=== PATIENT | female | born 1990 | race African-American/Black ===

== ENCOUNTER 2016-10-23 11:52 | Inpatient (IN) | payer OTHER ==
[~2016-10-23] VITALS: Ht 172.7 cm; Wt 156.5 kg
[~2016-10-23 11:52] MED LIST: Chromagen, Feogen, M PO; Motrin PO; TYLENOL WITH C1 EACH PO
[2016-10-23 12:51] LABS: HEMATOCRIT 35.4 % (36.0-46.0); MCH 22.4 PG (29.0-34.0); MCHC 31.1 G/DL (30.0-36.0); MEAN PLAT.VOLUME 10.4 uM^3 (9.5-12.4); PLATELET COUNT 460 K/uL (156-360); RBC DIS.WIDTH-CV 17.4 % (11.8-14.6); RBC DIS.WIDTH-SD 44.1 % (39-53); RED BLOOD COUNT 4.92 M/uL (3.80-5.20); WHITE BLOOD COUNT 11.3 K/uL (4.1-10.2)
[2016-10-23 13:01] LABS: CHLORIDE 102 mEq/L (99-109); POTASSIUM 3.9 mEq/L (3.7-5.4); SODIUM 135 mEq/L (136-147)
[2016-10-23 13:03] LABS: GLUCOSE 109 mg/dL (70-99)
[2016-10-23 13:04] LABS: ANION GAP 11 MEQ/L (2-14)
[2016-10-23 13:07] LABS: GFR ESTIMATE (CALCULATED) > 59 mL/min/
[2016-10-23 13:08] LABS: UREA NITROGEN (BUN) 7 mg/dL (9-23)
[2016-10-23 14:19] LABS: QUANTITATIVE HCG < 4.0 MIU/ML
[2016-10-23 14:58] LABS: INFLUENZA A VIRAL ANTIGEN NEGATIVE; INFLUENZA B VIRAL ANTIGEN NEGATIVE
[2016-10-23 15:29] LABS: D-DIMER ELISA 0.38 mg/L FEU (< 0.57)
[2016-10-23 20:35] VITALS: BP 129/82
[2016-10-23 22:52] VITALS: BP 125/60
[2016-10-24 08:39] VITALS: BP 130/60
[2016-10-24 12:27] VITALS: BP 121/64
[2016-10-24 16:20] VITALS: BP 140/82
[2016-10-24 23:12] VITALS: BP 149/90
[2016-10-25 07:35] VITALS: BP 147/69
[2016-10-25 16:35] VITALS: BP 143/69
[2016-10-25 22:58] VITALS: BP 131/80
[2016-10-26 06:48] LABS: HEMATOCRIT 32.9 % (36.0-46.0); MCH 21.9 PG (29.0-34.0); MCHC 29.8 G/DL (30.0-36.0); MCV 73.4 FL (83-99); MEAN PLAT.VOLUME 10.8 uM^3 (9.5-12.4); PLATELET COUNT 389 K/uL (156-360); RBC DIS.WIDTH-CV 17.7 % (11.8-14.6); RBC DIS.WIDTH-SD 47.4 % (39-53); RED BLOOD COUNT 4.48 M/uL (3.80-5.20)
[2016-10-26 06:52] LABS: WHITE BLOOD COUNT 5.7 K/uL (4.1-10.2)
[2016-10-26 07:07] LABS: ALKALINE PHOSPHATASE 41 IU/L (3-129); ANION GAP 10 MEQ/L (2-14); CHLORIDE 105 MEQ/L (99-109); GFR ESTIMATE (CALCULATED) > 59 mL/min/; GLUCOSE 91 mg/dL (70-99); POTASSIUM 3.4 MEQ/L (3.7-5.4); SAMPLE HEMOLYSIS CHECK 0; SAMPLE ICTERIC CHECK 0; SAMPLE LIPEMIA CHECK 0; SODIUM 137 MEQ/L (136-147); TOTAL BILIRUBIN 0.4 MG/DL (0.0-1.0); UREA NITROGEN (BUN) 8 mg/dL (9-23)
[2016-10-26 08:25] VITALS: BP 154/88
[2016-10-26 18:00] VITALS: BP 132/82
[2016-10-26 19:21] VITALS: BP 133/73
[2016-10-26 23:12] VITALS: BP 117/72
[2016-10-27 06:42] LABS: HEMATOCRIT 32.7 % (36.0-46.0); MCH 21.8 PG (29.0-34.0); MCV 72.8 FL (83-99); MEAN PLAT.VOLUME 9.9 uM^3 (9.5-12.4); PLATELET COUNT 439 K/uL (156-360); RBC DIS.WIDTH-CV 17.5 % (11.8-14.6); RBC DIS.WIDTH-SD 46.5 % (39-53); RED BLOOD COUNT 4.49 M/uL (3.80-5.20); WHITE BLOOD COUNT 6.8 K/uL (4.1-10.2)
[2016-10-27 06:56] LABS: EOSINOPHIL (%) 5.6 % (0-5); EOSINOPHIL COUNT 0.4 K/uL (0-0.3); IMMATURE GRANULOCYTE (%) 0.3 % (0.0-0.7); LYMPHOCYTE COUNT 2.8 K/uL (1.0-2.8); MONOCYTE (%) 6.2 % (3-12); MONOCYTE COUNT 0.4 K/uL (0-0.8); NEUTROPHIL (%) 46.9 % (45-76); NEUTROPHIL COUNT 3.2 K/uL (1.8-6.4)
[2016-10-27 07:15] LABS: ANION GAP 10 MEQ/L (2-14); CHLORIDE 103 MEQ/L (99-109); GFR ESTIMATE (CALCULATED) > 59 mL/min/; GLUCOSE 96 mg/dL (70-99); SAMPLE HEMOLYSIS CHECK 0; SAMPLE ICTERIC CHECK 0; SAMPLE LIPEMIA CHECK 0; SODIUM 135 MEQ/L (136-147); UREA NITROGEN (BUN) 7 mg/dL (9-23)
[2016-10-27 07:24] LABS: POTASSIUM 4.1 MEQ/L (3.7-5.4)
[2016-10-27 08:15] VITALS: BP 132/80
[2016-10-27 16:35] VITALS: BP 130/84
[2016-10-27 22:53] VITALS: BP 107/67
[2016-10-28 08:18] VITALS: BP 142/82
[2016-10-28 16:46] VITALS: BP 123/87
[2016-10-28 23:02] VITALS: BP 119/60
[2016-10-29 07:50] LABS: HEMATOCRIT 31.6 % (36.0-46.0); MCH 21.9 PG (29.0-34.0); MCHC 30.4 G/DL (30.0-36.0); MCV 72.1 FL (83-99); MEAN PLAT.VOLUME 9.7 uM^3 (9.5-12.4); PLATELET COUNT 466 K/uL (156-360); RBC DIS.WIDTH-CV 17.3 % (11.8-14.6); RED BLOOD COUNT 4.38 M/uL (3.80-5.20)
[2016-10-29 07:56] LABS: ALKALINE PHOSPHATASE 42 IU/L (3-129); ANION GAP 7 MEQ/L (2-14); CHLORIDE 105 MEQ/L (99-109); GFR ESTIMATE (CALCULATED) > 59 mL/min/; GLUCOSE 95 mg/dL (70-99); POTASSIUM 4.5 MEQ/L (3.7-5.4); SAMPLE HEMOLYSIS CHECK 0; SAMPLE ICTERIC CHECK 0; SAMPLE LIPEMIA CHECK 0; SODIUM 135 MEQ/L (136-147); TOTAL BILIRUBIN 0.3 MG/DL (0.0-1.0); UREA NITROGEN (BUN) 8 mg/dL (9-23)
[2016-10-29 08:00] VITALS: BP 132/78
[2016-10-29 08:03] LABS: WHITE BLOOD COUNT 9.6 K/uL (4.1-10.2)
[2016-10-29 16:06] VITALS: BP 175/90
[2016-10-29] MEDS ORDERED: CHERATUSSIN AC473 ML PO (20:58)
[2016-10-29] MEDS ORDERED: SYMBICORT60 INHALAT IH (20:58)
[2016-10-29] MEDS ORDERED: COMBIVENT RESPIM4 GM IH (20:58)
[2016-10-29] MEDS ORDERED: PREDNISONE10 MG PO (20:58)
[2016-10-29] MEDS ORDERED: LEVAQUIN500 MG PO (20:58)
== END 2016-10-29 22:07 | disposition home or self-care (01) | DRG 194 ==
LOC: EME 11:52 → RME 11:52 → 5EAST 16:52 → EDOF 16:52 → 5EAST 20:39
PROVIDERS: Family Medicine; Internal Medicine; Nurse Practitioner Family
DX: J18.1 Lobar pneumonia, unspecified organism (principal); Z68.43 Body mass index [BMI] 50.0-59.9, adult; J98.11 Atelectasis; R09.02 Hypoxemia; E66.01 Morbid (severe) obesity due to excess calories; D64.9 Anemia, unspecified; R59.1 Generalized enlarged lymph nodes; Z60.2 Problems related to living alone; F41.9 Anxiety disorder, unspecified; R45.1 Restlessness and agitation; E87.6 Hypokalemia; R00.0 Tachycardia, unspecified; R06.82 Tachypnea, not elsewhere classified; Z87.891 Personal history of nicotine dependence
CPT/HCPCS: 71020; 71275; 80048; 80053; 84702; 85025; 85027; 85379; 87040; 87502; 94010; 94640; 94640 76; 94760; 94799; 99202; 99281; 99285; J0456; J0696; J1100; J1650; J1885; J7030; J7050; J7512

== ENCOUNTER 2017-09-10 11:00 | Day surgery (SDC) | payer OTHER ==
[~2017-09-10] VITALS: Ht 167.6 cm; Wt 159.1 kg
[~2017-09-10 11:00] MED LIST changes: +CHERATUSSIN AC473 ML PO; +COMBIVENT RESPIM4 GM IH; +LEVAQUIN500 MG PO; +PREDNISONE10 MG PO; +SYMBICORT60 INHALAT IH
[2017-09-10 11:42] VITALS: BP 136/82
[2017-09-10 11:59] LABS: BASOPHIL COUNT 0.1 K/uL (0-0.1); EOSINOPHIL (%) 3.3 % (0-5); EOSINOPHIL COUNT 0.3 K/uL (0-0.3); IMMATURE GRANULOCYTE (%) 0.3 % (0.0-0.7); INSTRUMENT ABS NEUTROPHIL CT 5.4 K/uL; LYMPHOCYTE COUNT 2.4 K/uL (1.0-2.8); MCH 21.1 PG (29.0-34.0); MCHC 28.9 G/DL (30.0-36.0); MCV 73.2 FL (83-99); MEAN PLAT.VOLUME 10.3 uM^3 (9.5-12.4); MONOCYTE COUNT 0.4 K/uL (0-0.8); NEUTROPHIL (%) 62.9 % (45-76); NEUTROPHIL COUNT 5.4 K/uL (1.8-6.4); PLATELET COUNT 516 K/uL (156-360); RBC DIS.WIDTH-CV 17.4 % (11.8-14.6); RBC DIS.WIDTH-SD 45.6 % (39-53); RED BLOOD COUNT 4.78 M/uL (3.80-5.20); WHITE BLOOD COUNT 8.7 K/uL (4.1-10.2)
[2017-09-10] MEDS ORDERED: MOTRIN800 MG PO (14:13)
[2017-09-10 15:10] VITALS: BP 144/86
[2017-09-10 16:24] VITALS: BP 135/81
[2017-09-11 09:01] LABS: INTERNAL CONTROL VALID? YES
== END 2017-09-10 16:36 | disposition home or self-care (01) ==
LOC: SDC 11:00
PROVIDERS: Obstetrics & Gynecology
PROC: 0UC98ZZ Extirpation of Matter from Uterus, Via Natural or Artificial Opening Endoscopic (ICD-10-PCS; principal; 2017-09-10)
DX: T83.39XA Other mechanical complication of intrauterine contraceptive device, initial encounter (principal); Y76.8 Miscellaneous obstetric and gynecological devices associated with adverse incidents, not elsewhere classified; E66.9 Obesity, unspecified; Z68.43 Body mass index [BMI] 50.0-59.9, adult; Z87.891 Personal history of nicotine dependence
CPT/HCPCS: 84703; 85025; 86850; 86900; 86901; 94640; J0330; J1885; J2250; J2405; J3010